=== PATIENT | female | born 1965 ===

== ENCOUNTER → 2021-06-05 | Outpatient (REF) ==
--- NOTE | 2021-06-05 12:56 | REP ---
INDICATION: 11 WEEKS GESTATION OF COMPARISON: None. TECHNIQUE: Internal rotation, external rotation, and Y view. FINDINGS: Mild age-related changes are appreciated. The acromioclavicular and glenohumeral joints are otherwise intact and relatively normal. Subacromial space is normal. No acute fracture or dislocation. IMPRESSION: Essentially normal age-appropriate left shoulder radiographs. <Electronically signed by Reno Mendez > 06/05/21 [id number]
== END ==
LOC: M PLAIMG 11:58
PROVIDERS: ATTEND Internal Medicine
DX: Z00.00 Encounter for general adult medical examination without abnormal findings (principal)